=== PATIENT | female | born 1990 | race Two or more races ===

== ENCOUNTER → 2017-09-12 | Outpatient (CLI) | payer OTHER ==
[~2017-09-12] MED LIST: OMNIPAQUE 300 MG/ML, 10ML VIAL ONE
== END | disposition home or self-care (01) ==
LOC: RAD 07:45
PROVIDERS: ATTEND Obstetrics & Gynecology
DX: N97.1 Female infertility of tubal origin (principal)
CPT/HCPCS: 74740; Q9967

== ENCOUNTER 2017-11-12 07:17 | Inpatient (IN) | payer OTHER ==
[~2017-11-12] VITALS: Ht 160 cm; Wt 70.1 kg
[2017-11-12] MEDS ORDERED: LACTATED RINGERS 1,000 ML IV SCH (07:45)
[2017-11-12] MEDS ORDERED: OxyconTIN ER 20 MG TAB.ER PO ONE (08:00)
[2017-11-12] MEDS ORDERED: SCOPOLAMINE PATCH, 1.5MG PATCH.TD72 TD ONE (08:00)
[2017-11-12] MEDS ORDERED: GABAPENTIN 300 MG CAPSULE PO ONE (08:00)
[2017-11-12] MEDS ORDERED: ONDANSETRON ODT 8 MG PO ONE (08:00)
[2017-11-12] MEDS ORDERED: ACETAMINOPHEN 500 MG TABLET PO ONE (08:00)
[2017-11-12] MEDS ORDERED: PLEASE ENTER HEIGHT AND WEIGHT MC SCH (08:00)
[2017-11-12] MEDS ORDERED: FENTANYL PF 250 MCG/5ML ONE (08:11)
[2017-11-12] MEDS ORDERED: MIDAZOLAM 1 MG/ML, 2ML ONE (08:11)
[2017-11-12] MEDS ORDERED: PROPOFOL 10 MG/ML, 20ML ONE ×2 (08:12→09:13)
[2017-11-12] MEDS ORDERED: ROCURONIUM 10MG/ML,5ML ONE (08:12)
[2017-11-12] MEDS ORDERED: GLYCOPYRROLATE 0.4 MG/2 ML, 2ML ONE (08:13)
[2017-11-12] MEDS ORDERED: NEOSTIGMINE 1 MG/ML, 10ML ONE ×2 (08:13→09:13)
[2017-11-12] MEDS ORDERED: CEFAZOLIN 1,000 MG ONE ×3 (08:14→09:13)
[2017-11-12] MEDS ORDERED: DEXAMETHASONE 4 MG/ML, 1ML ONE ×3 (08:14→09:13)
[2017-11-12] MEDS ORDERED: ONDANSETRON 2MG/ML, 2ML ONE ×3 (08:14→09:13)
[2017-11-12] MEDS ORDERED: WATER-INJECTION,STERILE 10 ML IV ONE (08:14)
[2017-11-12 08:18] VITALS: BP 112/77
[2017-11-12 08:38] LABS: HCG UR SG 1.026 (1.003-1.030)
[2017-11-12] MEDS ORDERED: METHYLENE BLUE 10 MG/ML 10ML ONE (08:42)
[2017-11-12] MEDS ORDERED: ONDANSETRON 2MG/ML, 2ML IV PRN ×2 (09:00→14:30)
[2017-11-12] MEDS ORDERED: ACETAMINOPHEN 325 MG TABLET PO PRN (09:00)
[2017-11-12] MEDS ORDERED: MORPHINE SULFATE 4 MG/ML, 1ML IVPush PRN (09:00)
[2017-11-12] MEDS ORDERED: PROMETHAZINE 25 MG/ML, 1ML IV PRN (09:00)
[2017-11-12] MEDS ORDERED: ONDANSETRON ODT 8 MG PO PRN (09:00)
[2017-11-12] MEDS ORDERED: PROMETHAZINE 25 MG/ML, 1ML IM PRN ×2 (09:00)
[2017-11-12] MEDS ORDERED: LABETALOL 5MG/ML, 20ML IV PRN (09:00)
[2017-11-12] MEDS ORDERED: hydrALAzine 20 MG/ML, 1ML IV PRN (09:00)
[2017-11-12] MEDS ORDERED: FENTANYL PF 100 MCG/2ML IV PRN (09:00)
[2017-11-12] MEDS ORDERED: OXYcodone 5 MG/5 ML ORAL.SOL UDC PO PRN ×2 (09:00→14:30)
[2017-11-12] MEDS ORDERED: MEPERIDINE/PF 25MG/0.5ML IVPush PRN (09:00)
[2017-11-12] MEDS ORDERED: GLYCOPYRROLATE 0.2MG/1ML, 5ML ONE (09:13)
[2017-11-12] MEDS ORDERED: KETOROLAC 30 MG/1 ML ONE (09:13)
[2017-11-12] MEDS ORDERED: ROCURONIUM 10 MG/ML,10ML ONE (09:13)
[2017-11-12] MEDS ORDERED: HEPARIN 1,000 UNITS/ML, 10ML ONE (09:35)
[2017-11-12] MEDS ORDERED: FENTANYL PF 100 MCG/2ML ONE (10:40)
[2017-11-12] MEDS ORDERED: ROPIvacaine/PF 0.2%, 20 ML ONE ×2 (11:07)
[2017-11-12] MEDS ORDERED: HYDROmorphone 2 MG/ML, 1ML ONE (12:15)
[2017-11-12] MEDS: HYDROmorphone 1 MG/ML, 1ML IV PRN ×2 (12:17→12:25)
[2017-11-12 13:30] VITALS: BP 114/75
[2017-11-12] MEDS ORDERED: HYDROmorphone 2 MG/ML, 1ML IV PRN (14:30)
[2017-11-12] MEDS ORDERED: D5%-LACTATED RINGERS 1,000 ML IV SCH (14:30)
[2017-11-12] MEDS: KETOROLAC 30 MG/1 ML IV SCH ×2 (15:04→20:16)
[2017-11-12] MEDS: SIMETHICONE 80 MG CHEW TAB PO SCH ×2 (15:58→20:16)
[2017-11-12 22:00] VITALS: BP 111/71
[2017-11-13 00:38] VITALS: BP 98/62
[2017-11-13] MEDS: KETOROLAC 30 MG/1 ML IV SCH ×2 (02:55→08:49)
[2017-11-13 05:20] VITALS: BP 107/65
[2017-11-13 07:11] VITALS: BP 102/65
[2017-11-13] MEDS ORDERED: D5%-LACTATED RINGERS 1,000 ML IV SCH (08:32)
[2017-11-13] MEDS: SIMETHICONE 80 MG CHEW TAB PO SCH (08:49)
[2017-11-13] MEDS ORDERED: IBUP-1222 PO (13:43)
[2017-11-13] MEDS ORDERED: OXYC5CAP2 PO (13:43)
[2017-11-13] MEDS ORDERED: IBUPROFEN 600 MG TABLET PO SCH (16:00)
== END 2017-11-13 14:19 | disposition home or self-care (01) | DRG 743 ==
LOC: ORIP 07:17 → 4NOR 13:22 → DCLOUNGE 11-13 14:09
PROVIDERS: ADMIT Specialist; ATTEND Specialist
PROC: 3E0T3BZ Introduction of Anesthetic Agent into Peripheral Nerves and Plexi, Percutaneous Approach (ICD-10-PCS; 2017-11-12)
PROC: 0UQ60ZZ Repair Left Fallopian Tube, Open Approach (ICD-10-PCS; principal; 2017-11-12 09:00)
DX: N97.1 Female infertility of tubal origin (principal); N73.6 Female pelvic peritoneal adhesions (postinfective); K38.8 Other specified diseases of appendix; Z90.79 Acquired absence of other genital organ(s)
CPT/HCPCS: 36415; J7121; 81025; 85014; 85018; G0378; J0690; J1100; J1170; J1644; J1885; J2250; J2405; J2704; J2710; J2795; J3010; J3490; Q0162; J7120; Q9968

== ENCOUNTER 2018-05-15 20:10 | Emergency (ER) | payer OTHER ==
[~2018-05-15] VITALS: Ht 157.5 cm; Wt 65.5 kg
[~2018-05-15 20:10] MED LIST changes: +IBUP-1222 PO; -OMNIPAQUE 300 MG/ML, 10ML VIAL ONE; +OXYC5CAP2 PO
[2018-05-15 20:21] VITALS: BP 114/76
--- NOTE | 2018-05-15 22:00 | NUR ---
report received from STEPHANIE Valenzuela.
--- NOTE | 2018-05-15 22:57 | NUR ---
results reviewed with pt by EDPA, room found empty by this RN, no belongings found in room. pt left before receiving dc instructions/paperwork and having repeat VS.
== END 2018-05-15 22:58 | disposition home or self-care (01) ==
LOC: ED 21:26
DX: R07.9 Chest pain, unspecified (principal); N64.59 Other signs and symptoms in breast
CPT/HCPCS: 36415; 84703; 99283

== ENCOUNTER 2018-06-08 18:35 | Emergency (ER) | payer OTHER ==
[2018-06-08 18:38] VITALS: BP 131/86
[2018-06-08] MEDS ORDERED: METHOCARBAMOL 750 MG TABLET ONE (19:29)
[2018-06-08] MEDS ORDERED: IBUPROFEN 200 MG TABLET ONE (19:29)
[2018-06-08] MEDS ORDERED: METHOCARBAMOL 750 MG TABLET PO ONE (19:30)
[2018-06-08] MEDS ORDERED: IBUPROFEN 200 MG TABLET PO ONE (19:30)
== END 2018-06-08 21:52 | disposition home or self-care (01) ==
LOC: ED 21:44
DX: S02.31XA Fracture of orbital floor, right side, initial encounter for closed fracture (principal); G89.11 Acute pain due to trauma; M25.511 Pain in right shoulder; V49.19XA Passenger injured in collision with other motor vehicles in nontraffic accident, initial encounter; Y93.89 Activity, other specified; Y92.89 Other specified places as the place of occurrence of the external cause; Y99.8 Other external cause status
CPT/HCPCS: 70486; 99284